=== PATIENT | female | born 1935 | race Caucasian/White ===

== ENCOUNTER 2020-04-08 03:21 | Emergency (ER) | payer MEDICARE, BC ==
[2020-04-08 04:08] LABS: #Basophils 0.1 thou/uL (0.0-0.2); #Eosinphils 0.3 thou/uL (0.0-0.7); #Lymphocytes 2.6 thou/uL (1.20-3.40); #Monocytes 0.7 thou/uL (0.11-0.59); #Neutrophils 2.9 thou/uL (1.40-6.50); %Basophils 1.6 % (0.0-1.0); %Lymphocytes 39.8 % (21.0-51.0); %Monocytes 10.5 % (0.0-10.0); %Neutrophils 44.1 % (42.0-75.0); Hemoglobin 14.4 g/dL (12.0-16.0); Mean Corpuscular HGB CONC 33.5 g/dL (32.0-36.0); Mean Corpuscular Hemoglobin 30.3 pg (27.0-31.0); Mean Corpuscular Volume 90.5 fL (78.0-98.0); Mean Platelet Volume 7.1 fL (7.4-10.4); Platelet Count 247 thou/uL (130-400); RBC Distribution Width 12.4 % (11.5-14.5); Red Blood Cell (RBC) Count 4.75 mill/uL (4.20-5.40); White Blood Cell (WBC) Count 6.5 thou/uL (4.8-10.8)
[2020-04-08 04:29] LABS: ALT (SGPT) 17 U/L (8-55); AST (SGOT) 24 U/L (5-34); Alkaline Phosphatase 73 U/L (40-110); Anion Gap 11 mmol/L (10-20); BUN (Urea Nitrogen) 24 mg/dL (9.8-20.1); Bilirubin, Total 0.4 mg/dL (0.2-1.2); Calc. Creatinine Clearance 0 mL/min (70-130); Calcium 9.3 mg/dL (7.8-10.44); Carbon Dioxide 26 mmol/L (23-31); Chloride 106 mmol/L (98-107); Estimated GFR-MDRD 66; Glucose 97 mg/dL (83-110); Potassium 4.2 mmol/L (3.5-5.1); Sodium 139 mmol/L (136-145)
--- NOTE | 2020-04-08 07:53 | RAD ---
XR Chest 1 View Portable HISTORY: Cough, hemoptysis COMPARISON: None FINDINGS: The heart size is at upper limits of normal. The uterus tortuous. The lungs are well expand ed without focal areas of consolidation, pneumothorax or pleural effusions. IMPRESSION: No radiographic evidence of acute cardiopulmonary process.
--- NOTE | 2020-04-08 08:49 | CT ---
PRELIMINARY REPORT/[facility]/EMERGENCY AFTER HOURS PROCEDURE: EXAM: CTA Chest with Intravenous Contrast CLINICAL HISTORY: Patient presents for evaluation of cough, Patient presents for evaluation of hemoptysis, described as bright red blood, with clots. TECHNIQUE: Axial CTA images of the chest with intravenous contrast. Three-dimensional MIP/volume rendered reform ations were performed. CONTRAST: With; ISOVUE 370,100mL COMPARISON: None provided. FINDINGS: PULMONARY ARTERIES There is no intraluminal filling defect suspicious for PE. AORTA No thoracic aortic aneurysm or dissection. LUNGS There are scattered nodular reticular opacities in the bilateral lower lungs. PLEURAL SPACES No pleural effusion. No pneumothorax. HEART AND MEDIASTINUM No cardiomegaly. No significant pericardial effusion. LYMPH NODES No lymphadenopathy. BONES No focal osseous abnormality or acute fracture. CHEST WALL AND UPPER ABDOMEN Images through the upper abdomen are unremarkable. The chest wall is unremarkable. IMPRESSION: There are scattered nodular reticular opacities in the bilateral lower lungs. No CT evidence of a pulmonary embolism. ELECTRONICALLY SIGNED BY: Gela Reddy MD Apr 08, 2020 5:29:30 AM [employer] This report is intended for review by the ordering physician only, in accordance of law. If you recei ve this report in error, please call [facility] at [phone]. FINAL REPORT EMERGENT AFTER HOURS CTA OF THE CHEST WITH CONTRAST: FINDINGS/IMPRESSION: I agree with the findings and impression given in the preliminary report per [facility] physici an. 1. No evidence of pulmonary thromboembolism. 2. Reticulonodular opacities are seen in the right middle lobe and lingula. There are calcified gra nulomas in the right middle lobe and these are likely sequelae from prior remote infectious process w ith scarring in these locations. POS: [facility]
[2020-04-08] MEDS ORDERED: Iopamidol 370 76% 100 ML VIAL ONE (14:23)
== END 2020-04-08 06:20 | disposition home or self-care (01) ==
LOC: ERS 03:21
DX: R04.2 Hemoptysis (principal); I10 Essential (primary) hypertension; E03.9 Hypothyroidism, unspecified
CPT/HCPCS: 71045; 71275; 80053; 83880; 85025; 85379; 93005; Q9967

== ENCOUNTER 2022-08-06 02:13 | Observation (INO) | payer BC, MEDICARE ==
[2022-08-06 02:59] LABS: #Basophils 0.1 thou/uL (0.0-0.2); #Eosinphils 0.2 thou/uL (0.0-0.7); #Lymphocytes 2.8 thou/uL (1.20-3.40); #Monocytes 0.9 thou/uL (0.11-0.59); #Neutrophils 3.2 thou/uL (1.40-6.50); %Eosinophils 3.4 % (0.0-10.0); %Lymphocytes 39.2 % (21.0-51.0); %Monocytes 11.7 % (0.0-10.0); %Neutrophils 44.7 % (42.0-75.0); Hemoglobin 12.2 g/dL (12.0-16.0); Mean Corpuscular HGB CONC 33.3 g/dL (32.0-36.0); Mean Corpuscular Hemoglobin 30.4 pg (27.0-31.0); Mean Corpuscular Volume 91.5 fl (78.0-98.0); Mean Platelet Volume 7.1 fL (7.4-10.4); Platelet Count 253 10x3/uL (130-400); RBC Distribution Width 13.1 % (11.5-14.5); White Blood Cell (WBC) Count 7.2 10x3/uL (4.8-10.8)
[2022-08-06] MEDS ORDERED: Aspirin Chewable 81 MG TAB ONE (03:01)
[2022-08-06 03:21] LABS: ALT (SGPT) 24 U/L (8-55); AST (SGOT) 25 U/L (5-34); Albumin 3.9 g/dL (3.4-4.8); Alkaline Phosphatase 84 U/L (40-110); Anion Gap 15 mmol/L (10-20); BUN (Urea Nitrogen) 31 mg/dL (9.8-20.1); Bilirubin, Total 0.2 mg/dL (0.2-1.2); Calc. Creatinine Clearance 0 mL/min (70-130); Calcium 9.1 mg/dL (7.8-10.44); Carbon Dioxide 20 mmol/L (23-31); Chloride 102 mmol/L (98-107); Estimated GFR 67; Globulin 2.8 g/dL (2.4-3.5); Glucose 106 mg/dL (83-110); Lipase 37 U/L (8-78); Potassium 4.1 mmol/L (3.5-5.1); Protein, Total 6.7 g/dL (5.8-8.1); Sodium 133 mmol/L (136-145)
[2022-08-06] MEDS ORDERED: Acetaminophen 500 MG TAB ONE (04:01)
[2022-08-06] MEDS ORDERED: Ondansetron PF 4 MG/2 ML Vial IVP PRN (04:30)
[2022-08-06] MEDS ORDERED: Acetaminophen 325 MG TAB PO PRN (04:30)
[2022-08-06] MEDS ORDERED: Ondansetron ODT 4 MG TAB SL PRN (04:30)
[2022-08-06] MEDS ORDERED: Nitroglycerin 0.4 MG TAB (25 Tab Bottle) SL PRN (05:10)
[2022-08-06] MEDS ORDERED: Senokot S 8.6-50 MG TAB PO PRN (05:10)
[2022-08-06 05:38] VITALS: BMI 22.4
[2022-08-06] MEDS ORDERED: Levothyroxine Sodium 25 MCG TAB PO SCH (06:00)
[2022-08-06 07:24] LABS: Troponin I Less than 0.010 ng/mL (< 0.028)
[2022-08-06] MEDS ORDERED: Amlodipine 5 MG TAB PO SCH (09:00)
[2022-08-06] MEDS ORDERED: Escitalopram Oxalate 10 mg Tablet PO SCH (09:00)
[2022-08-06] MEDS ORDERED: Losartan 25 MG TAB PO SCH (09:00)
[2022-08-06] MEDS ORDERED: Famotidine 20 MG TAB PO SCH (09:00)
[2022-08-06] MEDS ORDERED: Hydrochlorothiazide 25 MG TAB PO SCH (09:00)
[2022-08-06] MEDS ORDERED: Aspirin Chewable 81 MG TAB PO SCH (09:00)
[2022-08-06] MEDS ORDERED: ADENOSINE 60 MG/20 ML VIAL ONE (09:54)
[2022-08-06 09:57] LABS: Troponin I Less than 0.010 ng/mL (< 0.028)
[2022-08-06 16:09] VITALS: BP 158/71; TEMP 97.9
== END 2022-08-06 17:20 | disposition home or self-care (01) ==
LOC: ERS 02:13 → 2SW 04:56
PROVIDERS: ADMIT Hospitalist; ATTEND Hospitalist
DX: R07.89 Other chest pain (principal); I10 Essential (primary) hypertension; E03.9 Hypothyroidism, unspecified; E78.5 Hyperlipidemia, unspecified; Z79.890 Hormone replacement therapy; Z79.899 Other long term (current) drug therapy; Z88.5 Allergy status to narcotic agent; Z20.822 Contact with and (suspected) exposure to COVID-19
CPT/HCPCS: 71045; 78452; 80053; 83690; 83880; 84484 ×2; 85025; 93005; 93017; 99285; A9500; G0378 ×2; U0003; U0005; 36415; J0153

== ENCOUNTER 2024-07-10 13:54 | Outpatient (CLI) | payer MEDICARE | END 2024-07-10 13:55 | disposition home or self-care (01) | LOC: BICRAD 13:54 | PROVIDERS: ATTEND Family Medicine | DX: R09.89 Other specified symptoms and signs involving the circulatory and respiratory systems (principal); J18.9 Pneumonia, unspecified organism | CPT/HCPCS: 71046 ==